=== PATIENT | male | born 1960 | race Caucasian/White ===

== ENCOUNTER 2016-11-17 17:50 | Emergency (ER) | payer MEDICARE | END 2016-11-17 20:14 | disposition home or self-care (01) | LOC: ER 17:50 | DX: K21.9 Gastro-esophageal reflux disease without esophagitis (principal); R13.10 Dysphagia, unspecified; R07.89 Other chest pain; R10.13 Epigastric pain; I25.10 Atherosclerotic heart disease of native coronary artery without angina pectoris; J44.9 Chronic obstructive pulmonary disease, unspecified; F17.210 Nicotine dependence, cigarettes, uncomplicated; Z88.5 Allergy status to narcotic agent; Z79.899 Other long term (current) drug therapy; Z79.82 Long term (current) use of aspirin ==